=== PATIENT | female | born 1990 | race Asian ===

== ENCOUNTER 2022-04-29 13:11 | Emergency (ER) | payer BC ==
[~2022-04-29] VITALS: Ht 160 cm; Wt 59.0 kg
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
[2022-04-29] MEDS ORDERED: ACETAMINOPHEN 325 MG TABLET PO ONE (14:00)
--- NOTE | 2022-04-29 14:00 | NUR ---
X-RAY TECH AT BEDSIDE
[2022-04-29] MEDS ORDERED: ACETAMINOPHEN 325 MG TABLET ONE (14:04)
[2022-04-29] MEDS ORDERED: LIDO30AD10 TP (15:11)
[2022-04-29] MEDS ORDERED: CYCL5TAB PO (15:11)
[2022-04-29] MEDS ORDERED: NAPR-1164 PO (15:11)
--- NOTE | 2022-04-29 15:35 | NUR ---
Patient discharged to home in stable condition. Written and verbal after care instructions given. Patient verbalizes understanding of instruction.
[2022-04-29 16:32] VITALS: BP 125/89
== END 2022-04-29 15:35 | disposition home or self-care (01) ==
LOC: ER 13:15
DX: S49.92XA Unspecified injury of left shoulder and upper arm, initial encounter (principal); V03.99XA Pedestrian with other conveyance injured in collision with car, pick-up truck or van, unspecified whether traffic or nontraffic accident, initial encounter; Y93.89 Activity, other specified; Y92.410 Unspecified street and highway as the place of occurrence of the external cause; Y99.8 Other external cause status
CPT/HCPCS: 73030-TC; 73060-TC